=== PATIENT | female | born 1990 | race Caucasian/White ===

== ENCOUNTER 2021-04-06 12:35 | Day surgery (SDC) | payer OTHER ==
[~2021-04-06] VITALS: Ht 172.7 cm; Wt 65.7 kg
[2021-04-06] MEDS ORDERED: PNV1TAB.5 PO (13:18)
[2021-04-06 13:27] LABS: BASOPHILS % (AUTO) 1 % (0-1); EOSINOPHILS % (AUTO) 1 % (1-7); LYMPHOCYTES % (AUTO) 42 % (22-44); MEAN CORPUSCULAR HEMOGLOBIN 29.8 pg (27.0-34.8); MEAN CORPUSCULAR HGB CONC 33.6 g/dL (32.4-35.8); MEAN PLATELET VOLUME 8.5 fL (7.4-10.4); MONOCYTES % (AUTO) 5 % (2-9); NEUTROPHILS % (AUTO) 52 % (42-75); PLATELET COUNT 225 x10^3/uL (130-400); RED BLOOD COUNT 4.54 x10^6/uL (3.82-5.3); RED CELL DISTRIBUTION WIDTH 12.8 % (9.6-15.2)
[2021-04-06] MEDS ORDERED: CHLORHEXIDINE 15 ML UDC ONE (13:33)
[2021-04-06 13:48] VITALS: BP 106/64
[2021-04-06 13:49] LABS: HCG UR SG 1.019 (1.003-1.030)
[2021-04-06] MEDS ORDERED: MISOPROSTOL 200 MCG TABLET ONE (13:56)
[2021-04-06] MEDS ORDERED: OXYTOCIN 10 UNITS/ML, 1ML ONE (13:56)
[2021-04-06] MEDS ORDERED: METHYLERGONOVINE 0.2 MG/ML IM ONE (13:57)
[2021-04-06] MEDS ORDERED: SILVER NITRATE STICK TP ONE (13:57)
[2021-04-06] MEDS ORDERED: LACTATED RINGERS 1,000 ML IV SCH (14:00)
[2021-04-06] MEDS ORDERED: CHLORHEXIDINE 15 ML UDC PO ONE (14:00)
[2021-04-06] MEDS ORDERED: FENTANYL PF 100 MCG/2ML ONE (14:22)
[2021-04-06] MEDS ORDERED: PROPOFOL 10 MG/ML, 20ML ONE (14:25)
[2021-04-06] MEDS ORDERED: DEXAMETHASONE 4 MG/ML, 1ML ONE ×2 (14:52→14:58)
[2021-04-06] MEDS ORDERED: CEFAZOLIN 1,000 MG ONE ×2 (14:58)
[2021-04-06] MEDS ORDERED: ONDANSETRON 2MG/ML, 2ML ONE (15:06)
[2021-04-06] MEDS ORDERED: EPHEDRINE 50 MG/ML, 1ML IVPush PRN (15:30)
[2021-04-06] MEDS ORDERED: hydrALAzine 20 MG/ML, 1ML IV PRN (15:30)
[2021-04-06] MEDS ORDERED: FENTANYL PF 100 MCG/2ML IV PRN (15:30)
[2021-04-06] MEDS ORDERED: ALBUTEROL SULFATE 2.5 MG/3 ML NPPB PRN (15:30)
[2021-04-06] MEDS ORDERED: ACETAMINOPHEN 325 MG TABLET PO PRN (15:30)
[2021-04-06] MEDS ORDERED: LABETALOL 5MG/ML, 20ML IV PRN (15:30)
[2021-04-06] MEDS ORDERED: OXYcodone 5 MG/5 ML ORAL.SOL UDC PO PRN (15:30)
[2021-04-06] MEDS ORDERED: DIPHENHYDRAMINE 50 MG/ML, 1ML IVPush PRN (15:30)
[2021-04-06] MEDS ORDERED: PROMETHAZINE 25 MG/ML, 1ML IVPush PRN (15:30)
[2021-04-06] MEDS ORDERED: HYDROmorphone 1 MG/ML, 1ML INJ IVPush PRN (15:30)
[2021-04-06] MEDS ORDERED: PROMETHAZINE 12.5 MG SUPP PR PRN (15:30)
[2021-04-06] MEDS ORDERED: MEPERIDINE/PF 25MG/0.5ML IVPush PRN (15:30)
[2021-04-06] MEDS ORDERED: ONDANSETRON 2MG/ML, 2ML IVPush PRN (15:30)
== END 2021-04-06 17:45 | disposition home or self-care (01) ==
LOC: OUT 12:35
PROVIDERS: ATTEND Obstetrics & Gynecology Maternal & Fetal Medicine
DX: O72.2 Delayed and secondary postpartum hemorrhage (principal); J45.909 Unspecified asthma, uncomplicated; Z98.890 Other specified postprocedural states; Z72.89 Other problems related to lifestyle
CPT/HCPCS: 36415; 59160; 81025; 85025; 86850; 86900; 88305; J0690; J1100; J2405; J2704; J3010; J7120; J2210; J2590